=== PATIENT | female | born 1950 | race Caucasian/White ===

== ENCOUNTER 2021-11-17 17:07 | Inpatient (IN) | payer MEDICAID ==
[~2021-11-17] VITALS: Ht 152.4 cm; Wt 54.4 kg
[2021-11-17] MEDS ORDERED: KETAMINE HCL (500MG/10ML) 50 MG/ML VIAL ONE (17:24)
--- NOTE | 2021-11-17 17:28 | NUR ---
IV LINE IS ESTABLISJED, BLOOD SPECIMEN COLLECTED AND SENT TO THE LAB. THE LINE IS SALINE LOCKED.
[2021-11-17] MEDS ORDERED: CALC0.253 PO (17:31)
[2021-11-17] MEDS ORDERED: CLOP75TA15 PO ×2 (17:31→18:20)
[2021-11-17] MEDS ORDERED: FURO40TA5 PO ×2 (17:31→18:20)
[2021-11-17] MEDS ORDERED: FAMO20TA8 PO ×2 (17:31→18:20)
--- NOTE | 2021-11-17 17:33 | NUR ---
BIB RA FROM HOME,CHEST PAIN X 30 MINUTES,NTG AND ASA GIVEN. THE PATIENT IS ALERT AND ORIENTED X3. RESPIRATION REGULAR BUT LABORED. ATTACHED TO THE MONITOR. HONG AT THE BEDSIDE.
--- NOTE | 2021-11-17 17:36 | NUR ---
COVID ANTIGEN SWAB DONE AND SENT TO THE LAB
--- NOTE | 2021-11-17 17:41 | NUR ---
THE PATIENT IS CURRENTLY ON NON-REBREATHER MASK 15L/MIN AND SANAL CANNULA 6L/MIN AND OXYGEN SATURATION LEVEL IS 94%. RESPIRATION REGULAR AND LABORED. DR JANE MADE AWARE.
[2021-11-17 17:42] LABS: BASOPHILS # (AUTO) 0.1 K/uL (0.0-0.2); BASOPHILS % (AUTO) 0.7 % (0.0-2.0); EOSINOPHILS % (AUTO) 2.7 % (0.0-6.0); HEMATOCRIT 32 % (33-45); HEMOGLOBIN 10.1 g/dL (11.5-14.8); LYMPHOCYTES # (AUTO) 7.1 K/uL (0.8-4.8); LYMPHOCYTES % (AUTO) 40.6 % (20.0-44.0); MEAN CORPUSCULAR HGB CONC 31 g/dl (31.0-36.0); MEAN CORPUSCULAR VOLUME 84 fL (82-100); MONOCYTES # (AUTO) 1.1 K/uL (0.1-1.30); MONOCYTES % (AUTO) 6.2 % (2.0-12.0); NEUTROPHILS # (AUTO) 8.7 K/uL (1.8-8.9); NEUTROPHILS % (AUTO) 49.8 % (43.0-81.0); PLATELET COUNT (AUTO) 249 K/uL (150-450); RED BLOOD CELL COUNT(AUTO) 3.83 MIL/uL (4.0-5.2); WHITE BLOOD COUNT (AUTO) 17.5 K/uL (4.3-11.0)
--- NOTE | 2021-11-17 17:42 | NUR ---
RT AT THE BEDSIDE
[2021-11-17] MEDS ORDERED: ENOXAPARIN SODIUM 60 MG/0.6 ML DISP.SYRIN SQ ONE ×2 (18:00→18:03)
[2021-11-17 18:08] LABS: CALCIUM, SERUM 8.5 mg/dL (8.5-10.1); CARBON DIOXIDE 19 mmol/L (21-32); CHLORIDE 101 mmol/L (98-107); CREATININE 5.3 mg/dL (0.6-1.3); POTASSIUM 4.8 mmol/L (3.5-5.1); SODIUM SERUM 135 mmol/L (136-145); UREA NITROGEN, BLOOD 61 mg/dL (7-18)
[2021-11-17 18:12] LABS: GLUCOSE 352 mg/dL (74-106)
--- NOTE | 2021-11-17 18:15 | NUR ---
BS 352; LAW NOTIFIED
[2021-11-17] MEDS ORDERED: ATOR80TA PO (18:23)
[2021-11-17] MEDS ORDERED: POLY17PO4 PO (18:23)
[2021-11-17] MEDS ORDERED: FERR325T23 PO (18:23)
[2021-11-17] MEDS ORDERED: AMLO10TA4 PO (18:23)
[2021-11-17] MEDS ORDERED: SENN1TAB6 PO (18:23)
[2021-11-17] MEDS ORDERED: ASPI-1169 PO (18:23)
[2021-11-17] MEDS ORDERED: OMEP20TA5 PO (18:23)
[2021-11-17] MEDS ORDERED: INSU100V7 SQ (18:23)
[2021-11-17 18:33] LABS: BILIRUBIN,DIRECT 0.1 mg/dL (0.0-0.2); BILIRUBIN,TOTAL 0.3 mg/dL (0.2-1.0)
[2021-11-17 18:34] LABS: ALANINE AMINOTRANSFERASE 22 U/L (12-78); ALBUMIN 2.9 g/dL (3.4-5.0); ALKALINE PHOSPHATASE 171 U/L (46-116); ASPARTATE AMINOTRANSFERASE 17 U/L (15-37); TOTAL PROTEIN, SERUM 7.5 g/dL (6.4-8.2)
[2021-11-17] MEDS ORDERED: CEFEPIME 1 GM in IV D5W 50 ML IV ONE (19:00)
[2021-11-17] MEDS ORDERED: VANCOMYCIN 1 GM in IV D5W 250 ML IV ONE (19:00)
[2021-11-17] MEDS ORDERED: FUROSEMIDE 40 MG/4 ML VIAL IV ONE (19:00)
--- NOTE | 2021-11-17 19:07 | NUR ---
[facility] CALLED EMERGENCY ROOM TECHNICIAN PAGED.
[2021-11-17] MEDS ORDERED: FUROSEMIDE 40 MG/4 ML VIAL ONE (19:20)
--- NOTE | 2021-11-17 19:24 | NUR ---
MERRILL PA, [facility], CALLED FOR UPDATE
[2021-11-17] MEDS ORDERED: ONDANSETRON HCL/PF 4 MG/2 ML VIAL IVP PRN (19:30)
[2021-11-17] MEDS ORDERED: DEXTROSE 50%-WATER 50 ML DISP.SYRIN IV PRN (19:30)
--- NOTE | 2021-11-17 19:35 | NUR ---
REPORT GIVEN TO NURSE KELL FOR MELISSA
[2021-11-17 20:19] LABS: ABG BASE EXCESS -10.4 mmol/L; ABG PCO2 47.1 mmHg (35.0-45.0); ABG PH 7.188 (7.350-7.450); ABG PO2 71.1 mmHg (75.0-100.0); COHb 0.2 % (0.5-1.5); MetHb 0.3 % (0.0-1.5); SITE, ABG Right Radial
[2021-11-17] MEDS ORDERED: HEPARIN SODIUM, PORCINE 5000 UNITS/1 ML VIAL SQ SCH (21:00)
--- NOTE | 2021-11-17 21:14 | NUR ---
[address] [facility]
--- NOTE | 2021-11-17 21:30 | NUR ---
report given to óscar villareal
--- NOTE | 2021-11-17 21:44 | NUR ---
PATIENT TRANSFERRED UNDER ACLS
[2021-11-17] MEDS: BLOOD SUGAR DIAGNOSTIC 1 EACH STRIP IN SCH (22:20)
[2021-11-17 22:25] VITALS: BP 127/66
[2021-11-17] MEDS ORDERED: SODIUM BICARBONATE SYR 50 MEQ/50 ML DISP.SYRIN IV ONE (22:30)
[2021-11-17] MEDS: INSULIN REGULAR, HUMAN 100 UNIT/ML 3 ML VIAL SQ PRN (22:36)
[2021-11-17] MEDS ORDERED: INSULIN REGULAR, HUMAN 100 UNIT/ML 3 ML VIAL ONE (22:49)
--- NOTE | 2021-11-17 22:54 | NUR ---
ICU/RN: BHAVNA GODFREY AT BEDSIDE TO AMBREEN DURAND.
[2021-11-17] MEDS ORDERED: FUROSEMIDE 40 MG/4 ML VIAL IV SCH (23:00)
[2021-11-17 23:01] VITALS: BP 134/63
[2021-11-17 23:13] LABS: ABG BASE EXCESS -8.2 mmol/L; ABG OXYGEN SATURATION 83.3 % (92.0-98.5); ABG PCO2 44.1 mmHg (35.0-45.0); ABG PH 7.246 (7.350-7.450); ABG PO2 50.1 mmHg (75.0-100.0); AaDO2 618.8 mmHg; COHb 0.3 % (0.5-1.5); MetHb 0.3 % (0.0-1.5); O2Hb 82.8 % (94.0-97.0); SITE, ABG Left Radial
--- NOTE | 2021-11-17 23:13 | NUR ---
STAT ABG DONE. RN NOTIFIED WITH THE RESULT.
[2021-11-17] MEDS: MORPHINE SULFATE INJ 2 MG/ML DISP.SYRIN IV PRN (23:14)
--- NOTE | 2021-11-17 23:16 | NUR ---
ICU/RN: ABG RESULTS SENT TO BHAVNA GODFREY.
[2021-11-18] VITALS (40 sets, daily range): BP systolic 81–182; BP diastolic 22–96
[2021-11-18] MEDS ORDERED: FUROSEMIDE 40 MG/4 ML VIAL IV ONE
[2021-11-18] MEDS: NITROGLYCERIN PACKET 1 GM PACKET TOP SCH ×4 (00:14→17:17)
[2021-11-18 02:03] LABS: BILIRUBIN,URINE NEGATIVE (NEGATIVE); COLOR,URINE YELLOW (YELLOW); LEUKOCYTE ESTERASE ,URINE NEGATIVE (NEGATIVE); NITRITE, URINE NEGATIVE (NEGATIVE); PROTEIN,URINE >=300 mg/dl (NEGATIVE); UGLUCOSE 250 MG/DL mg/dL (NEGATIVE); UROBILINOGEN,URINE 0.2 EU/dL (0.2)
[2021-11-18 02:10] LABS: BACTERIA,URINE Few /HPF (None Seen); SQUAMOUS EPITHELIAL CELL,UR Few /HPF (None Seen)
--- NOTE | 2021-11-18 03:01 | NUR ---
ICU/RN: CRITICAL TROPONIN RELAYED TO BHAVNA KELLY. ORDERS TO START HEPARIN DRIP FOR ACS PER PROTOCOL.
[2021-11-18 03:47] LABS: BASOPHILS # (AUTO) 0.1 K/uL (0.0-0.2); BASOPHILS % (AUTO) 0.5 % (0.0-2.0); HEMATOCRIT 31 % (33-45); HEMOGLOBIN 9.8 g/dL (11.5-14.8); LYMPHOCYTES # (AUTO) 1.3 K/uL (0.8-4.8); LYMPHOCYTES % (AUTO) 5.6 % (20.0-44.0); MEAN CORPUSCULAR HGB CONC 32 g/dl (31.0-36.0); MEAN CORPUSCULAR VOLUME 82 fL (82-100); MONOCYTES # (AUTO) 1.3 K/uL (0.1-1.30); MONOCYTES % (AUTO) 5.6 % (2.0-12.0); NEUTROPHILS # (AUTO) 20.3 K/uL (1.8-8.9); NEUTROPHILS % (AUTO) 88.3 % (43.0-81.0); PLATELET COUNT (AUTO) 239 K/uL (150-450); RED BLOOD CELL COUNT(AUTO) 3.73 MIL/uL (4.0-5.2)
[2021-11-18 03:52] LABS: ABG OXYGEN SATURATION 97.9 % (92.0-98.5); ABG PCO2 37.5 mmHg (35.0-45.0); ABG PH 7.331 (7.350-7.450); ABG PO2 117.2 mmHg (75.0-100.0); AaDO2 558.3 mmHg; COHb 0.3 % (0.5-1.5); MetHb 0.3 % (0.0-1.5); O2Hb 97.3 % (94.0-97.0); SITE, ABG Left Radial
--- NOTE | 2021-11-18 03:53 | NUR ---
ABG DONE. RN NOTIFIED.
--- NOTE | 2021-11-18 03:57 | NUR ---
FIO2 TITRATED TO 70%.
[2021-11-18 04:00] LABS: CREATININE 5.4 mg/dL (0.6-1.3); MAGNESIUM 3.1 mg/dL (1.8-2.4); PHOSPHORUS 5.9 mg/dL (2.5-4.9); POTASSIUM 5.4 mmol/L (3.5-5.1)
[2021-11-18] MEDS: HEPARIN INFUSION/D5W 500 ML IV PRN (04:27)
[2021-11-18] MEDS: BLOOD SUGAR DIAGNOSTIC 1 EACH STRIP IN SCH ×4 (07:52→21:31)
--- NOTE | 2021-11-18 08:00 | NUR ---
rn notes received patient in the bed on Bipap for support of breath, patent awake a/o x3, BS-89mg/dl, no coverage given, patient refused to eat. infusing heparin 810units /hr intact on right ac area . no acute respiratory distress, vss. patient able to turn and reposition self in the bed. Serna draining light yellow output. call light within to reach. will follow up.
[2021-11-18] MEDS ORDERED: KETAMINE HCL (500MG/10ML) 50 MG/ML VIAL IV ONE (08:30)
--- NOTE | 2021-11-18 08:35 | NUR ---
WASTE MEDICATION Dr Alejandro discontinued the Ketamine. Witnessed Ketamine wasted by TONI New. Unable to waste through Pyxis. Grace, Pharmacist made aware. Signed, Raudel Perez
--- NOTE | 2021-11-18 08:35 | NUR ---
WASTE MEDICATION Dr Alejandro discontinued the Ketamine. Wasted Ketamine witnessed by TONI Starks. Unable to waste through Pyxis. Grace, Pharmacist made aware. Signed, Virgen Honeycutt
[2021-11-18] MEDS ORDERED: BUMETANIDE INJ 6 MG in IV D5W 36 ML IV ONE (11:00)
--- NOTE | 2021-11-18 11:30 | NUR ---
rn notes patient ptt level is 57.2 on therapeutic level no changes per heparin dosing orders. will put new ptt level recheck within 12hr.
--- NOTE | 2021-11-18 11:52 | NUR ---
rn notes BS- 170 mg/dl, patient still on bipap. infusing Bumex 1g drip at this time, assist patient turn and reposition with minimal assist. patient tolerated lunch 10%, self. due medication administered. will follow up.
[2021-11-18] MEDS: INSULIN REGULAR, HUMAN 100 UNIT/ML 3 ML VIAL SQ PRN ×2 (12:34→17:41)
[2021-11-18] MEDS ORDERED: SODIUM POLYSTYRENE SULFONATE 15 G/60 ML BOTTLE PO ONE (16:00)
[2021-11-18] MEDS ORDERED: Calcium Gluconate 1GM/10ML 4.65 MEQ in IV D5W 50 ML IV ONE (17:00)
--- NOTE | 2021-11-18 17:52 | NUR ---
rn notes administered Zofran 4mg/ml iv push for nausea/vomiting.
--- NOTE | 2021-11-18 18:15 | NUR ---
rn notes patient was complaining of chest pain 5/10 per pain scale, per Dr Vasquez, get new order remove nitopatch, and administered nitro sub lingual. ORDER TAKEN AND CARRIED OUT. patient getting stat EKG, BS-160MG/DL COVERAGE GIVEN, DUE MEDICATION ADMINISTERED. PATIENT ON BIPAP, ADMINISTERED SUBLINGUAL NITRO PER ORDER , BP 118/ 52, P- 102 , O2-95%. WILL FOLLOW UP.
[2021-11-18] MEDS ORDERED: NTG 50 MG/D5W250 ML BOTTL 250 ML IV PRN (18:30)
--- NOTE | 2021-11-18 18:30 | NUR ---
RN NOTES PATIENT REFUSED PAIN AT THIS TIME AFTER SL NITROGLYCERIN, NEW SCHEDULED MEDICATION ADMINISTERED, REFUSED NAUSEA/VOMITING. CALL LIGHT WITHIN TO REACH. ENDORSED ONCOMING NURSE FOLLOW PLAN OF CARE. PLAN PER ACCOUNT GENERAL MANAGER: Patient had some response to nitroglycerin sublingual therefore would not start the nitroglycerin drip for chest pain Eventually patient will need to have a cardiac catheterization and possible PCI. This to be plans on Monday unless the patient continued to have the symptoms of chest pain. At that point we will have to transfer the patient to an outside facility. ,
[2021-11-18] MEDS: ASPIRIN EC 325 MG TABLET.DR PO SCH (19:15)
[2021-11-18] MEDS: METOPROLOL TARTRATE 25 MG TABLET PO SCH ×2 (19:15→20:42)
--- NOTE | 2021-11-18 20:43 | NUR ---
MED NOTE: 2100 METOPROLOL HELD 1ST DOSE WAS GIVEN 90 MINS AGO.
[2021-11-18] MEDS: ATORVASTATIN 40 MG TABLET PO SCH (21:31)
--- NOTE | 2021-11-18 21:53 | NUR ---
ICU/RN: PT COMPLAINING OF UPSET STOMACH. VERIFIED WITH PT THAT IT IS NOT CHEST PAIN. ORDER RECEIVED FROM BHAVNA GODFREY DNP FOR MAALOX. WILL CONTINUE TO MONITOR PT.
[2021-11-18] MEDS ORDERED: MAG HYDROX/AL HYDROX/SIMETH 30 ML UDC PO PRN (22:00)
[2021-11-19] VITALS (90 sets, daily range): BP systolic 62–173; BP diastolic 35–95
--- NOTE | 2021-11-19 01:40 | NUR ---
ICU/RN: VILMA ORDONEZ @ BEDSIDE TO PLACE MIDLINE. PT TOLERATED WELL.
[2021-11-19] MEDS: ACETAMINOPHEN 325 MG TABLET PO PRN (04:38)
[2021-11-19 04:47] LABS: BASOPHILS # (AUTO) 0.1 K/uL (0.0-0.2); BASOPHILS % (AUTO) 0.2 % (0.0-2.0); EOSINOPHILS % (AUTO) 0.1 % (0.0-6.0); HEMATOCRIT 24 % (33-45); HEMOGLOBIN 7.8 g/dL (11.5-14.8); LYMPHOCYTES % (AUTO) 7.7 % (20.0-44.0); MEAN CORPUSCULAR HGB CONC 32 g/dl (31.0-36.0); MEAN CORPUSCULAR VOLUME 83 fL (82-100); MONOCYTES # (AUTO) 1.8 K/uL (0.1-1.30); MONOCYTES % (AUTO) 7.2 % (2.0-12.0); NEUTROPHILS # (AUTO) 21.6 K/uL (1.8-8.9); NEUTROPHILS % (AUTO) 84.8 % (43.0-81.0); PLATELET COUNT (AUTO) 167 K/uL (150-450); RED BLOOD CELL COUNT(AUTO) 2.93 MIL/uL (4.0-5.2); WHITE BLOOD COUNT (AUTO) 25.5 K/uL (4.3-11.0)
[2021-11-19 05:04] LABS: CALCIUM, SERUM 7.9 mg/dL (8.5-10.1); CREATININE 5.8 mg/dL (0.6-1.3); MAGNESIUM 2.9 mg/dL (1.8-2.4); PHOSPHORUS 7.3 mg/dL (2.5-4.9); POTASSIUM 4.2 mmol/L (3.5-5.1)
[2021-11-19] MEDS: HEPARIN INFUSION/D5W 500 ML IV PRN (05:05)
[2021-11-19] MEDS: MORPHINE SULFATE INJ 2 MG/ML DISP.SYRIN IV PRN (05:20)
--- NOTE | 2021-11-19 06:16 | NUR ---
FIO2 INCREASED DUE TO LOW O2 SATURATION. TONI BOSS.
--- NOTE | 2021-11-19 06:38 | NUR ---
ICU/RN: DR. SILVA AT BEDSIDE TRO DISCUSS DIALYSIS CATH PLACEMENT AND DIALYSIS WITH PT. PT GAVE CONSENT TO CATH PLACEMENT THIS MORNING.
--- NOTE | 2021-11-19 08:00 | NUR ---
rn notes received patient on bipap was complaining of sob, bs-271 mg/dl, T-9(.5 rectal. RT on bedside for breathing tx, , patient npo, infusing nitroglycerine drip @30mcg/kg/hr, held heparin drip at this time because of HD cath insertion per Dr Mireles. Troponin 75.120, hospitalist Dr Matthews, and Microfilm Operator Dr Ramirez aware of. Get stat order ABG , and keep NPO order taken, and carried out. call light within to reach. will follow up.
[2021-11-19 09:00] LABS: ABG BASE EXCESS -4.1 mmol/L; ABG OXYGEN SATURATION 85.7 % (92.0-98.5); ABG PCO2 40.1 mmHg (35.0-45.0); ABG PH 7.343 (7.350-7.450); ABG PO2 54.2 mmHg (75.0-100.0); AaDO2 618.7 mmHg; COHb 0.3 % (0.5-1.5); MetHb 0.3 % (0.0-1.5); O2Hb 85.2 % (94.0-97.0); SITE, ABG Right Radial
[2021-11-19] MEDS: METOPROLOL TARTRATE 25 MG TABLET PO SCH ×2 (09:00→21:00)
[2021-11-19] MEDS: BLOOD SUGAR DIAGNOSTIC 1 EACH STRIP IN SCH ×4 (09:08→22:54)
[2021-11-19] MEDS: FUROSEMIDE 20 MG/2 ML VIAL IV SCH ×2 (09:14→17:00)
[2021-11-19] MEDS: ASPIRIN EC 325 MG TABLET.DR PO SCH (09:14)
--- NOTE | 2021-11-19 09:30 | NUR ---
rn noted patient getting HD cath insert at this time via Beob ORDONEZ. patient sigh consent form.
--- NOTE | 2021-11-19 09:40 | NUR ---
RN NOTES ORDERED CHEST X-RAY STAT HD CATH PLACEMENT ON RIGHT INTRA JUGULAR AREA.
--- NOTE | 2021-11-19 11:30 | NUR ---
RN NOTES PATIENT GETTING HD AT THIS TIME. BS-211MG/DL. PATIENT NPO. WILL FOLLOW UP.
[2021-11-19] MEDS ORDERED: ALBUMIN 25% 25 GM in PREMIX 1 EA IV PRN (12:30)
--- NOTE | 2021-11-19 14:23 | NUR ---
rn notes HD finish at this time, patient get 900 ml of output.
--- NOTE | 2021-11-19 14:31 | NUR ---
US KIDNEY EXAM CANCELLED. PER ADRIENNE MUÑOZ THE EXAM WAS PLACED BY MISTAKE. THE SAME EXAM WAS DONE ON 11/17/21.
[2021-11-19 15:03] LABS: ABG BASE EXCESS -1.2 mmol/L; ABG OXYGEN SATURATION 97.7 % (92.0-98.5); ABG PCO2 35.6 mmHg (35.0-45.0); ABG PH 7.427 (7.350-7.450); ABG PO2 108.2 mmHg (75.0-100.0); AaDO2 569.2 mmHg; COHb 0.3 % (0.5-1.5); MetHb 0.3 % (0.0-1.5); O2Hb 97.1 % (94.0-97.0); SITE, ABG Right Brachial; VENT MODE, BG BIPAP 20/10
--- NOTE | 2021-11-19 15:19 | NUR ---
rn notes chest X-ray : Right-sided central venous catheter in satisfactory position. Multifocal bilateral infiltrates concerning for pneumonia are unchanged. No pleural effusion. No pneumothorax. Cardiomegaly unchanged.
--- NOTE | 2021-11-19 15:28 | NUR ---
RN NOTES After abd result patient on HF-50L, 100%, still keep patient npo.
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
--- NOTE | 2021-11-19 17:00 | NUR ---
RN NOTES PATIENT BP 82/56, P-95, t-99.5f, PATIENT ON NITRO DRIP WAS COMPLAINING OF CHEST PAIN 5/10 PER PATIENT REQUEST. CALLED DR SILVA, AND GET ORDER 500 ML BLOUSE X1 ORDER TAKEN AND CARRIED OUT. PATIENT 'S SON NEXT TO THE BED.
[2021-11-19] MEDS ORDERED: IV NS 0.9% 500 ML IV ONE (17:30)
--- NOTE | 2021-11-19 18:29 | NUR ---
rn notes administered morphine sulfate 2 mg/ml iv push for chest pain q 3 hr prn, bp 110/46, p-76. Start Levophed if bp lower than 95. Per Dr Vasquez if patient continue having chest pain will transfer to the acute hospital. spoke to the warehouse record clerk about transfer.
[2021-11-19] MEDS ORDERED: MORPHINE SULFATE INJ 2 MG/ML DISP.SYRIN IV PRN (18:30)
--- NOTE | 2021-11-19 18:30 | NUR ---
RN NOTES PATIENT RESPIRATION DROP BY 86% CALLED RT AND PUT PATIENT BACK TO THE BIPAP. STARTED LEVOPHED 0.1 MCG/KG/HR AT THIS TIME BP 76/41, P-84, R-28. FAMILY NEXT TO HE BED. WILL FOLLOW UP.
--- NOTE | 2021-11-19 18:33 | NUR ---
RT PLACED PT BACK ON BIPAP WITH PREVIOUS SETTINGS PER MD ORDER DUE TO DESATURATION AND INCREASE WOB. SPO2 87%. CHARGE NURSE SAMIR NOTIFROXANE AND AWARE. WILL CONTINUE TO MONITOR THE PATIENT FOR ANY CHANGES. Addendum: 11/19/21 at 1846 by KALYN ESPITIA RT Amended: Links added.
[2021-11-19] MEDS: NOREPINEPHRINE 32 MG in IV NS 0.9% 218 ML IV PRN (18:56)
--- NOTE | 2021-11-19 19:15 | NUR ---
RN NOTES GET CALL FROM DR GILLIS AND GET ORDER TO INTUBATE PATIENT, NOTIFIED CHAIN OF COMMODE.
--- NOTE | 2021-11-19 19:24 | NUR ---
RN NOTES GET CALL FROM [facility]. [facility] ST[facility]FF ABOUT PATIENT TRANSFER, BECAUSE OF NO BED AVAILABLE AT THIS TIME, IN THE ICU, THEY WILL NOTIFY CARDIOLOGY TEAM, AND FOLLOW UP ON COMING MONDAY.
--- NOTE | 2021-11-19 20:00 | NUR ---
ICU/RN: AT THE REQUEST OF DR. GILLIS PT TO BE INTUBATED. PT VERBALLY CONSENTED TO INTUBATION. DR. BEAL AT BEDSIDE TO PERFORM PROCEDURE. AIDEN RT AND STEVAN MAURER AT BEDSIDE TO ASSIST. 2001: ETOMIDATE 15MG ADMINISTERED IVP VIA LEFT UPPER ARM MIDLINE BY ED HOT PACKER. 2005: ROCURONIUM 50MG ADMINISTERED IVP VIA LEFT UPPER ARM MIDLINE BY ED HOT PACKER. 2007: PT SUCCESSFULLY INTUBATED BY DR. BEAL SIZE 7 ETT 22CM AT THE LIP CONFIRMED BY COLOR CHANGE CAPNOGRAPHY AND CHEST XRAY. PT TOLERATED PROCEDURE WELL. DR. WHITE NOTIFIED FOR POST INTUBATION ORDERS. 2030: PTS SONS MERRILL AND MARTÍNEZ AT BEDSIDE AND GIVEN UPDATE ABOUT THEIR MOTHER.
--- NOTE | 2021-11-19 20:10 | NUR ---
RT NOTE LATE ENTRY Pt rec'd on Bipap on noted settings as charted. Pt showed signs of tachypnea, accesory muscle usage, and desaturating spo2 of 84%. Pt orally intubated via ETT sz #7.0 secured at 22CM at the top lip line. CO2 detector color change noted. Clear bilateral bs heard on auscultation. Pt placed on [place] vent on noted settings as charted. ABG to be taken in 1 hr. Waiting for chest XRAY results. Ambu bag @ bedside. Alarms are set and audible. Vent plugged into red outlet. Will continue to monitor closely Addendum: 11/19/21 at 2241 by STEVAN RYDER RT Amended: Links added.
[2021-11-19] MEDS ORDERED: PROPOFOL 100 ML IV PRN (21:00)
[2021-11-19 21:33] LABS: ABG OXYGEN SATURATION 92.2 % (92.0-98.5); ABG PCO2 43.2 mmHg (35.0-45.0); ABG PH 7.289 (7.350-7.450); ABG PO2 72.5 mmHg (75.0-100.0); AaDO2 597.3 mmHg; COHb 0.3 % (0.5-1.5); O2Hb 91.9 % (94.0-97.0); PEEP,BG 12 cm H2O; SITE, ABG Right Brachial; VENT MODE, BG AC 18 450 100% +12; VT, ABG 450 mL
--- NOTE | 2021-11-19 21:42 | NUR ---
ICU/RN: POST INTUBATION ABG RESULTS RELAYED TO DR. WHITE. ORDERS RECIEVED TO PULL BACK ETT 1CM. REPEAT ABG IN THE AM AND CXR. WILL CONTINUE TO MONITOR.
[2021-11-19] MEDS: ATORVASTATIN 40 MG TABLET PO SCH (22:00)
--- NOTE | 2021-11-19 22:29 | NUR ---
RT NOTE ETT PULLED 1 CM OUT PER MD ORDERS. ETT SECURED @ 21CM AT TOP LIP. RN AWARE. WILL CONTINUE TO MONITOR CLOSELY. Addendum: 11/19/21 at 2230 by SETVAN RYDER RT Amended: Links added.
[2021-11-19] MEDS ORDERED: DEXTROSE 50%-WATER 50 ML DISP.SYRIN IV PRN (23:00)
--- NOTE | 2021-11-19 23:03 | NUR ---
RT NOTE VENT CHANGES PER MD ORDERS. PEEP DECREASED FROM 12 TO 5 PER MD ORDERS. O2 SATURATION AT 96% WILL CONTINUE TO MONITOR CLOSELY Addendum: 11/19/21 at 2307 by STEVAN RYDER RT Amended: Links added.
[2021-11-19] MEDS: PROPOFOL 100 ML IV PRN (23:22)
[2021-11-20] VITALS (99 sets, daily range): BP systolic 67–145; BP diastolic 27–96
[2021-11-20] MEDS: BLOOD SUGAR DIAGNOSTIC 1 EACH STRIP IN SCH ×5 (00:39→23:31)
[2021-11-20] MEDS: INSULIN REGULAR, HUMAN 100 UNIT/ML 3 ML VIAL SQ PRN ×4 (00:40→17:39)
[2021-11-20] MEDS: PROPOFOL 100 ML IV PRN ×5 (02:11→20:11)
[2021-11-20 05:05] LABS: BASOPHILS % (AUTO) 0.2 % (0.0-2.0); HEMATOCRIT 24 % (33-45); HEMOGLOBIN 7.5 g/dL (11.5-14.8); LYMPHOCYTES # (AUTO) 2.3 K/uL (0.8-4.8); LYMPHOCYTES % (AUTO) 9.8 % (20.0-44.0); MEAN CORPUSCULAR HGB CONC 32 g/dl (31.0-36.0); MEAN CORPUSCULAR VOLUME 82 fL (82-100); MONOCYTES # (AUTO) 0.7 K/uL (0.1-1.30); NEUTROPHILS # (AUTO) 20.3 K/uL (1.8-8.9); PLATELET COUNT (AUTO) 150 K/uL (150-450); RED BLOOD CELL COUNT(AUTO) 2.89 MIL/uL (4.0-5.2); WHITE BLOOD COUNT (AUTO) 23.3 K/uL (4.3-11.0)
[2021-11-20 05:48] LABS: CALCIUM, SERUM 7.5 mg/dL (8.5-10.1); CREATININE 4.4 mg/dL (0.6-1.3); POTASSIUM 4.3 mmol/L (3.5-5.1)
[2021-11-20 05:54] LABS: IRON, SERUM 9 ug/dl (50-175); TOTAL IRON BINDING CAPACITY 108 ug/dl (250-450)
[2021-11-20] MEDS: HEPARIN INFUSION/D5W 500 ML IV PRN (06:18)
--- NOTE | 2021-11-20 07:30 | NUR ---
RN NOTES PT FOUND SEMI FOWLERS DISPLAYING NO S/S OF DISTRESS, FLACC = 0, RIKERS = 3, BILATERAL RISE AND FALL OF THE CHEST OBSERVED. R IJ HD CATH DRESSING IS CLEAN AND DRY. L UA MIDLINE IS PATIENT AND INTACT. MATTHEWS CATH BELOW PATIENT DRAINING BY GRAVITY. VSS, RN WILL MONITOR THROUGHOUT SHIFT. SAFETY MEASURES IN PLACE, BED LOCKED AND IN LOWEST POSITION, SIDE RAILS UPX2, CALL LIGHT WITHIN REACH, BED ALARM ARMED. Addendum: 11/20/21 at 0845 by NESSA FRAZIER RN BILATERAL SOFT WRISTS APPLIED, PULSES PALPATED AND CAP REFILL < 3 SECONDS BILATERALLY.
[2021-11-20] MEDS: FUROSEMIDE 20 MG/2 ML VIAL IV SCH ×2 (09:00→17:00)
[2021-11-20] MEDS: METOPROLOL TARTRATE 25 MG TABLET PO SCH ×2 (09:00→21:09)
--- NOTE | 2021-11-20 09:00 | NUR ---
NURSES NOTES LOPRESSOR AND LASIX HELD PER CARDIOLOGISTS ORDERS
[2021-11-20 09:47] LABS: ABG BASE EXCESS -3.1 mmol/L; ABG OXYGEN SATURATION 91.7 % (92.0-98.5); ABG PH 7.402 (7.350-7.450); ABG PO2 65.5 mmHg (75.0-100.0); AaDO2 251.6 mmHg; MetHb 0.1 % (0.0-1.5); O2Hb 91.6 % (94.0-97.0); SITE, ABG Right Radial
[2021-11-20] MEDS ORDERED: IV NS 0.9% 500 ML BAG IV PRN (11:00)
[2021-11-20] MEDS: ASPIRIN EC 325 MG TABLET.DR PO SCH (13:38)
[2021-11-20] MEDS: ACETAMINOPHEN 325 MG TABLET PO PRN (16:56)
[2021-11-20] MEDS: NOREPINEPHRINE 32 MG in IV NS 0.9% 218 ML IV PRN (18:57)
--- NOTE | 2021-11-20 19:10 | NUR ---
RN NOTES PT FOUND SEMI FOWLERS DISPLAYING NO S/S OF DISTRESS, FLACC = 0, RIKERS = 3, BILATERAL RISE AND FALL OF THE CHEST OBSERVED. R IJ HD CATH DRESSING IS CLEAN AND DRY. L UA MIDLINE IS PATIENT AND INTACT. R UA PICC LINE PATIENT AND INTACT. R RADIAL A-LINE CLEAN AND DRY. MATTHEWS CATH BELOW PATIENT DRAINING BY GRAVITY. SBAR AND REPORT GIVEN TO BRAILLE PROOFREADER RN, ALL QUESTIONS ANSWERED. L WRIST SOFT APPLIED, PULSE PALPATED AND CAP REFILL < [address] SAFETY MEASURES IN PLACE, BED LOCKED AND IN LOWEST POSITION, SIDE RAILS UPX2, CALL LIGHT WITHIN REACH, BED ALARM ARMED. PT ENDORSED IN STABLE CONDITION FOR MELISSA.
[2021-11-20] MEDS: ATORVASTATIN 40 MG TABLET PO SCH (21:08)
[2021-11-21] VITALS (102 sets, daily range): BP systolic 58–188; BP diastolic 30–95
[2021-11-21] MEDS: PROPOFOL 100 ML IV PRN ×7 (00:36→23:53)
[2021-11-21 05:44] LABS: CALCIUM, SERUM 8.2 mg/dL (8.5-10.1); CREATININE 6.4 mg/dL (0.6-1.3); POTASSIUM 4.1 mmol/L (3.5-5.1)
[2021-11-21] MEDS: BLOOD SUGAR DIAGNOSTIC 1 EACH STRIP IN SCH ×4 (05:57→23:20)
[2021-11-21] MEDS: INSULIN REGULAR, HUMAN 100 UNIT/ML 3 ML VIAL SQ PRN ×4 (06:01→23:23)
[2021-11-21] MEDS: HEPARIN INFUSION/D5W 500 ML IV PRN (06:16)
--- NOTE | 2021-11-21 07:30 | NUR ---
RN NOTES PT FOUND SEMI FOWLERS DISPLAYING NO S/S OF DISTRESS, FLACC = 0, RIKERS = 3, BILATERAL RISE AND FALL OF THE CHEST OBSERVED. R IJ HD CATH DRESSING IS CLEAN AND DRY. L UA MIDLINE IS PATIENT AND INTACT. R UA PICC LINE PATIENT AND INTACT. R RADIAL A-LINE CLEAN AND DRY. MATTHEWS CATH BELOW PATIENT DRAINING BY GRAVITY. VSS, RN WILL MONITOR AND TREAT THROUGHOUT SHIFT. L WRIST SOFT APPLIED, PULSE PALPATED AND CAP REFILL < [address] SEC[address]. SAFETY MEASURES IN PLACE, BED LOCKED AND IN LOWEST POSITION, SIDE RAILS UPX2, CALL LIGHT WITHIN REACH, BED ALARM ARMED.
[2021-11-21 07:57] LABS: BASOPHILS # (AUTO) 0.1 K/uL (0.0-0.2); BASOPHILS % (AUTO) 0.6 % (0.0-2.0); EOSINOPHILS % (AUTO) 1.6 % (0.0-6.0); LYMPHOCYTES # (AUTO) 1.2 K/uL (0.8-4.8); LYMPHOCYTES % (AUTO) 6.6 % (20.0-44.0); MEAN CORPUSCULAR HGB CONC 33 g/dl (31.0-36.0); MEAN CORPUSCULAR VOLUME 82 fL (82-100); MONOCYTES # (AUTO) 0.8 K/uL (0.1-1.30); MONOCYTES % (AUTO) 4.6 % (2.0-12.0); NEUTROPHILS # (AUTO) 15.6 K/uL (1.8-8.9); NEUTROPHILS % (AUTO) 86.6 % (43.0-81.0); PLATELET COUNT (AUTO) 132 K/uL (150-450); RED BLOOD CELL COUNT(AUTO) 2.48 MIL/uL (4.0-5.2)
[2021-11-21 08:07] LABS: HEMOGLOBIN 6.6 g/dL (11.5-14.8)
[2021-11-21 08:08] LABS: HEMATOCRIT 20 % (33-45)
--- NOTE | 2021-11-21 08:30 | NUR ---
CRITICAL LAB LAB REPORTED HBG OF 6.6 AND HCT OF 20. RN REPORTED THIS TO HOSPITAL HOUSEKEEPER. DR GILLIS ORDERED TWO UNITS OF PRBC. RN ACKNOWLEDGED AND WILL ENTER ORDERS DIRECTED.
[2021-11-21] MEDS: FUROSEMIDE 20 MG/2 ML VIAL IV SCH ×2 (09:00→16:38)
--- NOTE | 2021-11-21 09:00 | NUR ---
NURSES NOTES HOLDING LASIX PER MD ORDER
[2021-11-21] MEDS: ASPIRIN EC 325 MG TABLET.DR PO SCH (09:09)
[2021-11-21] MEDS: METOPROLOL TARTRATE 25 MG TABLET PO SCH ×2 (09:09→21:00)
[2021-11-21 11:20] LABS: ABG BASE EXCESS -13.5 mmol/L; ABG OXYGEN SATURATION 81.7 % (92.0-98.5); ABG PCO2 28.1 mmHg (35.0-45.0); ABG PO2 56.7 mmHg (75.0-100.0); AaDO2 628.2 mmHg; COHb 0.3 % (0.5-1.5); MetHb 0.4 % (0.0-1.5); O2Hb 81.1 % (94.0-97.0); SITE, ABG A-Line
[2021-11-21 13:39] LABS: EOSINOPHILS % (MANUAL) 1 % (0-4); LYMPHOCYTES % (MANUAL) 7 % (16-48); MONOCYTES % (MANUAL) 4 % (0-11.0); NEUTROPHILS % (MANUAL) 88 (42-76)
[2021-11-21 16:56] LABS: BASOPHILS % (AUTO) 0.1 % (0.0-2.0); EOSINOPHILS % (AUTO) 0.1 % (0.0-6.0); HEMATOCRIT 23 % (33-45); HEMOGLOBIN 7.6 g/dL (11.5-14.8); LYMPHOCYTES # (AUTO) 0.5 K/uL (0.8-4.8); LYMPHOCYTES % (AUTO) 2.5 % (20.0-44.0); MEAN CORPUSCULAR HGB CONC 33 g/dl (31.0-36.0); MEAN CORPUSCULAR VOLUME 83 fL (82-100); MONOCYTES % (AUTO) 4.8 % (2.0-12.0); NEUTROPHILS # (AUTO) 18.7 K/uL (1.8-8.9); NEUTROPHILS % (AUTO) 92.5 % (43.0-81.0); PLATELET COUNT (AUTO) 164 K/uL (150-450); RED BLOOD CELL COUNT(AUTO) 2.81 MIL/uL (4.0-5.2); WHITE BLOOD COUNT (AUTO) 20.2 K/uL (4.3-11.0)
[2021-11-21] MEDS: NOREPINEPHRINE 32 MG in IV NS 0.9% 218 ML IV PRN (17:00)
--- NOTE | 2021-11-21 17:30 | NUR ---
RN NOTE RN CONTACTED BLOOD BANK, BLOOD BANK REPORTED NO ORDER. RN FOLLOWED BLOOD TRANSFUSION SET AT 0900. BLOOD BANK STATED THAT NO O+ BLOOD AVAILABLE. PRBC NOT GIVEN W/ HD.
--- NOTE | 2021-11-21 18:42 | NUR ---
MD COMMUNICATION RN INFORMED DR CORLEY OF PT HYPOTENSION IN DIALYSIS. MD GAVE ORDER: NEOSYNEPHRINE TITRATE TO MAINTAIN SBP > 90. RN READ BACK ORDER TO CONFIRM AND WILL ENTER DIRECTED.
[2021-11-21] MEDS ORDERED: PHENYLEPHRINE HCL IN 0.9% NACL 50 MG in PREMIX 1 EA IV PRN (19:00)
[2021-11-21] MEDS ORDERED: VASOPRESSIN INJ 40 UNIT in IV NS 0.9% 38 ML IV PRN (19:00)
--- NOTE | 2021-11-21 19:30 | NUR ---
RN NOTES PT FOUND SEMI FOWLERS DISPLAYING NO S/S OF DISTRESS, FLACC = 0, RIKERS = 3, BILATERAL RISE AND FALL OF THE CHEST OBSERVED. PT FINISHING UP HD. L UA MIDLINE IS PATIENT AND INTACT. R UA PICC LINE PATIENT AND INTACT. R RADIAL A-LINE CLEAN AND DRY. MATTHEWS CATH BELOW PATIENT DRAINING BY GRAVITY. SBAR AND REPORT GIVEN TO MAJOR LEAGUE BASEBALL UMPIRE RN, ALL QUESTIONS ANSWERED. L WRIST SOFT APPLIED, PULSE PALPATED AND CAP REFILL < [address] SAFETY MEASURES IN PLACE, BED LOCKED AND IN LOWEST POSITION, SIDE RAILS UPX2, CALL LIGHT WITHIN REACH, BED ALARM ARMED. PT ENDORSED IN STABLE CONDITION FOR MELISSA.
[2021-11-21 19:59] LABS: BAND % (MANUAL) 3 % (0.0-5.0); LYMPHOCYTES % (MANUAL) 5 % (16-48); MONOCYTES % (MANUAL) 4 % (0-11.0); NEUTROPHILS % (MANUAL) 88 (42-76)
--- NOTE | 2021-11-21 20:30 | NUR ---
RN NOTE PT TOLERATED HD. 2L REMOVED.WILL CONT TO MONITOR. REMAINS ON LEVOPHED FOR BP. WILL TITRATE ORDERED
--- NOTE | 2021-11-21 21:36 | NUR ---
RN NOTE-LOPRESSOR NOTIFIED SAW RUNNER BEKAH, OF PT UNSTABLE BP WITH TITRATION, BP IS VERY SENSITIVE TO LEVOPHED. ORDERS TO HOLD LOPRESSOR DOSE TONIGHT CARRIED OUT
--- NOTE | 2021-11-21 21:46 | NUR ---
RN ARNULFO-CARLIN NOTIFIED DR GILLIS OF LATEST H&H, PER MD ORDERS TO D/C BLOOD TRANSFUSION AND ALSO ORDERS TO D/C METOPROLOL, AND OBTAIN CONSENT FROM SON FOR A LEFT AND RIGHT HEART CATHETERIZATION.
--- NOTE | 2021-11-21 22:30 | NUR ---
RN NOTE CONSENT RECEIVED FROM SON MERRILL PA VIA TELEPHONE FOR LEFT AND RIGHT CATHETERIZATION, WITNESSED WITH TATIANA MUÑOZ. CONSENT PLACED IN CHART.
[2021-11-21] MEDS: ATORVASTATIN 40 MG TABLET PO SCH (22:55)
[2021-11-22] VITALS (94 sets, daily range): BP systolic 79–129; BP diastolic 38–95
[2021-11-22] MEDS: PROPOFOL 100 ML IV PRN ×5 (02:38→22:59)
[2021-11-22 05:01] LABS: CREATININE 4.5 mg/dL (0.6-1.3); POTASSIUM 3.9 mmol/L (3.5-5.1)
[2021-11-22 05:21] LABS: BASOPHILS # (AUTO) 0.1 K/uL (0.0-0.2); BASOPHILS % (AUTO) 0.4 % (0.0-2.0); EOSINOPHILS % (AUTO) 1.3 % (0.0-6.0); LYMPHOCYTES # (AUTO) 1.3 K/uL (0.8-4.8); LYMPHOCYTES % (AUTO) 7.6 % (20.0-44.0); MEAN CORPUSCULAR HGB CONC 33 g/dl (31.0-36.0); MEAN CORPUSCULAR VOLUME 81 fL (82-100); MONOCYTES # (AUTO) 0.6 K/uL (0.1-1.30); MONOCYTES % (AUTO) 3.4 % (2.0-12.0); NEUTROPHILS # (AUTO) 14.7 K/uL (1.8-8.9); NEUTROPHILS % (AUTO) 87.3 % (43.0-81.0); PLATELET COUNT (AUTO) 142 K/uL (150-450); RED BLOOD CELL COUNT(AUTO) 2.41 MIL/uL (4.0-5.2); WHITE BLOOD COUNT (AUTO) 16.9 K/uL (4.3-11.0)
[2021-11-22] MEDS: BLOOD SUGAR DIAGNOSTIC 1 EACH STRIP IN SCH ×4 (05:59→23:17)
[2021-11-22 06:00] LABS: HEMATOCRIT 20 % (33-45)
[2021-11-22 06:01] LABS: HEMOGLOBIN 6.4 g/dL (11.5-14.8)
[2021-11-22] MEDS: INSULIN REGULAR, HUMAN 100 UNIT/ML 3 ML VIAL SQ PRN ×4 (06:03→23:18)
--- NOTE | 2021-11-22 06:22 | NUR ---
RN NOTE NOTIFIED DR GILLIS REGARDING HGB 6.4 AND HCT 20, CONSIDERING HEART CATH IS WAS FOR TODAY. AWAITING ORDERS
[2021-11-22] MEDS: HEPARIN INFUSION/D5W 500 ML IV PRN (06:24)
--- NOTE | 2021-11-22 06:38 | NUR ---
RN NOTE RECEIVED CALL FROM SENIOR PROGRAMMER RELAYING MESSAGE THAT DR GILLIS HAS CANCELLED PROCEDURE, NO ORDERS REGARDING H/H NOTIFIED SALES REPRESENTATIVE PRINTING BEKAH OF HGB 6.4 AND HCT 20 ORDERS TO FOLLOW UP WITH DAY SHIFT
--- NOTE | 2021-11-22 07:02 | NUR ---
RN CLOSING NOTE PT REMAINS ON HEPARIN, WAITING FOR APTT. NO OBVIOUS SIGNS OF BLEEDING ASIDE FROM LOW HGB. REC'D CALL FROM BLOOD BANK, PER SOC, ORDER REC'D FOR 1UNIT PRBC BY DR GILLIS. BBK WILL CALL BACK WHEN BLOOD CAN BE RELEASED. RELAYED INFO TO DAY SHIFT REGARDING BLOOD AVAILABLE BUT NOT RELEASED. PT REMAINS WITH LEVO AND PROPOFOL. APPEARS SEDATED AND COMFORTABLE. SAFETY MEASURES IN PLACE. ENDORSED TO DAY SHIFT RN FOR CONTINUATION OF CARE.
--- NOTE | 2021-11-22 07:30 | NUR ---
OPENING NOTE: REPORT RECEIVED FROM THAIS MUÑOZ. H/H 6.03/02, DR GILLIS AWARE, PENDING 1 UNIT OF PRBCS FROM YESTERDAY, NATIONAL SHORTAGE, IF AVAILABLE WILL BE GIVEN TODAY. HEPARIN GTT INFUSING PER MD ORDERS AND PROTOCOL, LEVOPHED INFUSING AT 0.12 PER MD ORDERS, TITRATING PER PROTOCOL. PROPOFOL INFUSING FOR SEDATION AT 60MCG/KG/MIN PER MD ORDERS. PT CHECKED ON HOURLY AND PRN BY NURSING STAFF.
[2021-11-22] MEDS ORDERED: PHARMACY TO CHANGE PO MEDS TO GT/NG XX PRN ×2 (08:00→09:00)
[2021-11-22 08:56] LABS: ABG BASE EXCESS -5.8 mmol/L; ABG OXYGEN SATURATION 98.2 % (92.0-98.5); ABG PCO2 33.5 mmHg (35.0-45.0); ABG PO2 139.8 mmHg (75.0-100.0); COHb 0.3 % (0.5-1.5); MetHb 0.3 % (0.0-1.5); O2Hb 97.6 % (94.0-97.0); PEEP,BG 10 cm H2O; SITE, ABG A-Line; VT, ABG 450 mL
[2021-11-22] MEDS ORDERED: MAG HYDROX/AL HYDROX/SIMETH 30 ML UDC GT PRN (09:00)
[2021-11-22] MEDS ORDERED: ASPIRIN 81 MG TAB.CHEW GT SCH (09:00)
[2021-11-22] MEDS ORDERED: ACETAMINOPHEN 650 MG/20.3 ML UDC GT PRN (09:00)
--- NOTE | 2021-11-22 09:04 | NUR ---
vent changes below per dr. coker: fio2 40% peep +8 cmH2O Addendum: 11/22/21 at 0906 by TIAGO KRAFT RT Amended: Links added.
[2021-11-22] MEDS: FUROSEMIDE 20 MG/2 ML VIAL IV SCH ×2 (09:25→17:54)
--- NOTE | 2021-11-22 10:05 | NUR ---
FAMILY IS REQUESTING INFORMATION TO GET HUMANITARIAN VISAS FOR PATIENTS 2 DAUGHTERS WHO LIVE IN [facility]. AIRCRAFT ASSEMBLER IS PATIENT NEPHEW MARTÍNEZ [phone] (TOGOLESE SPEAKING).
[2021-11-22] MEDS ORDERED: ETOMIDATE 2 MG/ML VIAL IV ONE (16:47)
[2021-11-22] MEDS ORDERED: ROCURONIUM BROMIDE 50 MG/5 ML IV ONE (16:47)
[2021-11-22] MEDS ORDERED: NOREPINEPHRINE 8 MG in IV NS 0.9% 242 ML IV PRN (17:00)
--- NOTE | 2021-11-22 19:30 | NUR ---
END OF SHIFT NOTE: LEVOPHED INFUSING AT 0.08MCG/KG/MIN PER MD ORDERS. BLOOD FOR BLOOD TRANSFUSION IS STILL NOT AVAILABLE D/T NATIONAL SHORTAGE. PER DR CARRION DIALYSIS CAN NOT BE DONE UNTIL BLOOD IS READY BECAUSE PATIENT IS A RISK FOR CODING WITHOUT THE BLOOD. ELECTRODE CLEANING MACHINE OPERATOR ARRIVED, MEMORIAL MARKER DESIGNER INFORMED HER WHAT DR CARRION SAID. ELECTRODE CLEANING MACHINE OPERATOR VERIFIED WITH DR CARRION, NO DIALYSIS UNTIL BLOOD IS READY. HEPARIN GTT CONTINUES TO INFUSE PER MD ORDERS. PT CHECKED ON HOURLY AND PRN BY NURSING STAFF.
[2021-11-22 19:46] LABS: BAND % (MANUAL) 3 % (0.0-5.0); LYMPHOCYTES % (MANUAL) 6 % (16-48); MONOCYTES % (MANUAL) 1 % (0-11.0); NEUTROPHILS % (MANUAL) 90 (42-76)
[2021-11-22] MEDS ORDERED: ATORVASTATIN 40 MG TABLET GT SCH (22:00)
--- NOTE | 2021-11-22 22:00 | NUR ---
RN NOTE NOTIFIED REJECT OPENER BEKAH REGARDING PT GASTRIC RESIDUALS COFFEE GROUND CONTENTS, NOTED 40CC OF GASTRIC CONTENTS, PT TO BE CONNECTED TO LOW INTERMITT SUCTION, CARRIED OUT. NO NEW ORDERS. Addendum: 11/22/21 at 2353 by THAIS DUMONT RN PT IS TO BE MADE NPO
--- NOTE | 2021-11-22 23:05 | NUR ---
RN NOTE CALLED BLOOD BANK REGARDING UNIT ORDERED FOR PT, BLOOD NOT AVAILABLE AT THIS TIME. PER MILAD, IF AND WHEN AVAILABLE, WILL CALL BACK
[2021-11-23] VITALS: BP 96/40
[2021-11-23 00:15] VITALS: BP 95/45
[2021-11-23 00:30] VITALS: BP 92/28
[2021-11-23 00:45] VITALS: BP 84/35
[2021-11-23 01:00] VITALS: BP 90/25
--- NOTE | 2021-11-23 01:35 | NUR ---
RN NOTE BP NOTED TO BE DROPPING WILL TITRATE ORDERED.
[2021-11-23] MEDS ORDERED: PHENYLEPHRINE 10 MG/ML VIAL ONE (02:04)
[2021-11-23 02:10] VITALS: BP 86/38
--- NOTE | 2021-11-23 02:15 | NUR ---
RN NOTE TORIE MAXED ON LEVO, WILL START TORIE
[2021-11-23] MEDS ORDERED: CALCIUM CHLORIDE 1,000 MG/10 ML DISP.SYRIN ONE (02:35)
[2021-11-23] MEDS ORDERED: EPINEPHRINE (1:10,000) SYRINGE 1 MG/10 ML DISP.SYRIN ONE (02:39)
[2021-11-23] MEDS ORDERED: FEE PK DOSING 1 MIN EA MC ONE (02:48)
[2021-11-23] MEDS ORDERED: EPINEPHRINE (1:10,000) SYRINGE 1 MG/10 ML DISP.SYRIN IVP ONE ×2 (02:48)
[2021-11-23] MEDS ORDERED: AMIODARONE 150 MG/3 ML VIAL IV ONE ×2 (02:48)
[2021-11-23] MEDS ORDERED: CALCIUM CHLORIDE 1,000 MG/10 ML DISP.SYRIN IV ONE ×2 (02:48)
[2021-11-23] MEDS ORDERED: SODIUM BICARBONATE SYR 50 MEQ/50 ML DISP.SYRIN IV ONE ×2 (02:48)
--- NOTE | 2021-11-23 03:05 | NUR ---
CODE BLUE PT NOTED AT @0228 NO HEART RATE ON MONITOR RN PRESENT IN ROOM AT TIME, PT PULSELESS. CODE BLUE ACTIVATED COMPRESSIONS STARTED RT ARRIVED ER DOC MARY JANE PLUNKETT PRESENT @0249 TIME OF PRONOUNCED BY , AYOLE, PULSELESS, PUPILS FIXED DILATED REFER TO CODE BLUE SHEET FOR DETAILS @0305 NOTIFIED MERRILL (SON) WITH SPIRITUAL MINISTER EDDIE VIA TELEPHONE, FAMILY ON THEIR WAY
--- NOTE | 2021-11-23 03:10 | NUR ---
NURS SUP AT BEDSIDE AT TIME OF CODE, AND WHEN PRONOUNCED GUIDO PONCE
--- NOTE | 2021-11-23 04:40 | NUR ---
[facility] SPOKE WITH SHAKEEL ALL BELONGINGS LEFT TAKEN WITH PATIENT FAMILY, SON MERRILL. RELEASE OF REMAINS AUTHORIZATION SIGNED. SAYS HE WILL PHYSICALLY BE STAYING AT [facility]S HOUSE. WITH NEW PHONE LISTED [phone] (DAISY) SECURITY TOOK REMAINS. NOTIFIED MANINDER FROM ADMITTING. DROPHAMMER OPERATOR BEKAH NOTIFIED.
--- NOTE | 2021-11-23 05:00 | NUR ---
NO MORTUARY ARRANGEMENTS SET UP EXPLAINED TO SON WITH DAISY AND MARTÍNEZ TRANSLATING, UNTIL ARRANGEMENTS MADE, [place] [facility] [place], NURS OFFICE EXT PROVIDED. PT FAMILY DAISY DUQUE (PT NEICE) [phone] MARTÍNEZ SHIPLEY (PT NEPHEW) [phone] OK TO CONTACT
== END 2021-11-23 02:49 | DRG 194 ==
LOC: ER 17:23 → OBSVTOIN 21:24 → ICU 21:24 → INTOOBSV 21:24
PROVIDERS: ADMIT Nurse Practitioner Acute Care; ATTEND Internal Medicine
PROC: 5A09457 Assistance with Respiratory Ventilation, 24-96 Consecutive Hours, Continuous Positive Airway Pressure (ICD-10-PCS; 2021-11-17)
PROC: 5A1945Z Respiratory Ventilation, 24-96 Consecutive Hours (ICD-10-PCS; principal; 2021-11-19)
PROC: 0BH18EZ Insertion of Endotracheal Airway into Trachea, Via Natural or Artificial Opening Endoscopic (ICD-10-PCS; 2021-11-19)
PROC: 05HC33Z Insertion of Infusion Device into Left Basilic Vein, Percutaneous Approach (ICD-10-PCS; 2021-11-19)
PROC: 5A1D70Z Performance of Urinary Filtration, Intermittent, Less than 6 Hours Per Day (ICD-10-PCS; 2021-11-19)
PROC: 03HB33Z Insertion of Infusion Device into Right Radial Artery, Percutaneous Approach (ICD-10-PCS; 2021-11-20)
PROC: 02HV33Z Insertion of Infusion Device into Superior Vena Cava, Percutaneous Approach (ICD-10-PCS; 2021-11-20)
PROC: B548ZZA Ultrasonography of Superior Vena Cava, Guidance (ICD-10-PCS; 2021-11-20)
PROC: 5A2204Z Restoration of Cardiac Rhythm, Single (ICD-10-PCS; 2021-11-23)
DX: I13.0 Hypertensive heart and chronic kidney disease with heart failure and stage 1 through stage 4 chronic kidney disease, or unspecified chronic kidney disease (principal); N17.0 Acute kidney failure with tubular necrosis; J96.01 Acute respiratory failure with hypoxia; J96.02 Acute respiratory failure with hypercapnia; R57.0 Cardiogenic shock; E44.0 Moderate protein-calorie malnutrition; D68.59 Other primary thrombophilia; E87.1 Hypo-osmolality and hyponatremia; I21.4 Non-ST elevation (NSTEMI) myocardial infarction; E11.22 Type 2 diabetes mellitus with diabetic chronic kidney disease; D72.829 Elevated white blood cell count, unspecified; I50.41 Acute combined systolic (congestive) and diastolic (congestive) heart failure; E11.65 Type 2 diabetes mellitus with hyperglycemia; N18.9 Chronic kidney disease, unspecified; Z20.822 Contact with and (suspected) exposure to COVID-19; I25.10 Atherosclerotic heart disease of native coronary artery without angina pectoris; I25.2 Old myocardial infarction; I34.0 Nonrheumatic mitral (valve) insufficiency; D64.9 Anemia, unspecified; E87.2 Acidosis; Z79.4 Long term (current) use of insulin; Z79.82 Long term (current) use of aspirin; Z79.899 Other long term (current) drug therapy; E87.5 Hyperkalemia; Z86.73 Personal history of transient ischemic attack (TIA), and cerebral infarction without residual deficits; Z79.02 Long term (current) use of antithrombotics/antiplatelets; Z66 Do not resuscitate
CPT/HCPCS: 31720; 36415; 36600; 71045-TC; 76770-TC; 80048-TC; 80061-TC; 80076-TC; 81001; 82803-TC; 82962-TC; 83540-TC; 83735-TC; 83880; 83970; 84100-TC; 84484-TC; 85025-TC; 85378-TC; 85610-TC; 85730-TC; 86850-TC; 87081-TC; 90935-TC; 92950-TC; 93307-TC; 94002-TC; 94003-TC; 94760-TC; 94799-TC; A4216; C1750; C9803; G0378; J0171; J0282; J0610; J0692; J1644; J1650; J1815; J1940; J2270; J2370; J2405; J3370; J3490; J7030; J7040; J7050; J7060; P9047; U0003